=== PATIENT | female | born 1975 | race Two or more races ===

== ENCOUNTER 2016-11-24 09:41 | Emergency (ER) | payer OTHER ==
[2016-11-24 09:49] VITALS: BP 135/77; PULSE 85; TEMP 98.6; BMI 27.3
--- NOTE | 2016-11-24 10:20 | PDOC ---
History of Present Illness - General Chief Complaint: Injury Stated Complaint: LT FINGER Time Seen by Provider: 11/24/16 10:11 History Source: Patient Exam Limitations: No Limitations - History of Present Illness Initial Comments: 11/24/16 10:17 ypd HERE WITH PAIN LEFT PINKY TIP POST HUMAN BITE OVER GLOVED HAND Occurred: reports: just prior to arrival Past History - Past Medical History Allergies/Adverse Reactions: Allergies Allergy/AdvReac Type Severity Reaction Status Date / Time No Known Allergies Allergy Verified 11/24/16 09:49 - Surgical History Appendectomy: Yes - Psycho/Social/Smoking Cessation Hx Anxiety: No Suicidal Ideation: No Smoking Status: No Smoking History: Never smoked Number of Cigarettes Smoked Daily: 0 Hx Alcohol Use: Yes (SOCIAL) Drug/Substance Use Hx: No Substance Use Type: None Review of Systems - Review of Systems Constitutional: Yes: Symptoms Reported HEENTM: No: Symptoms Reported Integumentary: Yes: Symptoms Reported Neurological: No: Symptoms reported *Physical Exam - Vital Signs Last Vital Signs Temp Pulse Resp BP Pulse Ox 98.6 F 85 20 135/77 98 11/24/16 09:46 11/24/16 09:46 11/24/16 09:46 11/24/16 09:46 11/24/16 09:46 - Physical Exam General Appearance: Yes: Appropriately Dressed Neck: negative: Tender, Rigid Respiratory/Chest: positive: Lungs Clear Cardiovascular: positive: Regular Rhythm Medical Decision Making - Medical Decision Making 11/24/16 10:18 NO SKIN BREAK; FRO FINGER *DC/Admit/Observation/Transfer Diagnosis at time of Disposition: Contusion of left little finger Qualifiers: Encounter type: initial encounter Damage to nail status: without damage Qualified Code(s): S60.052A - Contusion of left little finger without damage to nail, initial encounter - Discharge Dispostion Disposition: HOME Condition at time of disposition: Stable Admit: Yes - Patient Instructions Additional Instructions: MAY RETURN TO WORK - Post Discharge Activity Work/School Note: Back to Work
--- NOTE | 2016-11-24 10:21 | PDOC ---
*Physical Exam - Vital Signs Last Vital Signs Temp Pulse Resp BP Pulse Ox 98.6 F 85 20 135/77 98 11/24/16 09:46 11/24/16 09:46 11/24/16 09:46 11/24/16 09:46 11/24/16 09:46 *DC/Admit/Observation/Transfer Diagnosis at time of Disposition: Contusion of left little finger Qualifiers: Encounter type: initial encounter Damage to nail status: without damage Qualified Code(s): S60.052A - Contusion of left little finger without damage to nail, initial encounter - Discharge Dispostion Disposition: HOME Condition at time of disposition: Stable Admit: No - Referrals - Patient Instructions Additional Instructions: MAY RETURN TO WORK - Post Discharge Activity Work/School Note: Back to Work
== END 2016-11-24 11:06 | disposition home or self-care (01) ==
LOC: JERFT 09:41
DX: S60.052A Contusion of left little finger without damage to nail, initial encounter (principal); W50.3XXA Accidental bite by another person, initial encounter; Y35.891A Legal intervention involving other specified means, law enforcement official injured, initial encounter; Y93.89 Activity, other specified; Y92.89 Other specified places as the place of occurrence of the external cause; Y99.0 Civilian activity done for income or pay
CPT/HCPCS: 99281-25